=== PATIENT | male | born 1985 | race Caucasian/White ===

== ENCOUNTER → 2017-04-21 | Outpatient (CLI) | payer BC | LOC: BMCIMAGING 12:09 | PROVIDERS: ATTEND Registered Nurse General Practice | DX: S93.02XA Subluxation of left ankle joint, initial encounter (principal) ==

== ENCOUNTER → 2018-03-14 | Outpatient (CLI) | payer BC | DX: R10.11 Right upper quadrant pain (principal) ==

== ENCOUNTER → 2018-05-29 | Outpatient (CLI) | payer BC ==
[~2018-05-29] MED LIST: IOPAMIDOL (ISOVUE-300) 100 ML BTL ONE
== END ==
LOC: FIMAGING 07:43
PROVIDERS: ATTEND Internal Medicine Infectious Disease
DX: R10.13 Epigastric pain (principal)
CPT/HCPCS: Q9967